=== PATIENT | female | born 1940 | race Caucasian/White ===

== ENCOUNTER → 2016-07-12 | Outpatient (CLI) | payer OTHER, BC ==
[~2016-07-12] VITALS: Ht 154.9 cm; Wt 49.2 kg
[~2016-07-12] MED LIST: AMBIEN 10 MG TA10 MG PO; ASPIR 8181 MG PO; ASPIRIN EC81 M1 PO; ASPIRIN325 PO; ATIVAN0.5 MG PO; ATROVENT15 ML NASAL; ATROVENT30 ML; BIOTIN1 M1 PO; BIOTIN2500 MCG PO; BISACODYL SUPP10 MG RECTAL; BONIVA150 MG PO; BROMIDE NASAL; CALCIUM + VITA1 EAC1 PO; CITRACAL + D M1 EACH PO; CITRUCEL500 MG PO; CLONAZEPAM 1 MG1 M1 PO; COLACE100 MG PO; CYCLOBENZAPRINE5 MG PO; CYMBALTA30 MG PO; CYMBALTA60 MG PO; DONEPEZIL HCL10 MG PO; EFFEXOR XR150 MG PO; FENTANYL PA25 MCG/HR TP; FENTANYL PATCH75 MCG TP; FISH OIL 1,0001 EAC5 PO; FISH OIL 1,001000 M2 PO; FISH OIL 500 M1 EAC1 PO; FLEXERIL PO; FOSAMAX 70 MG T70 MG PO; HYDROCHLOROTH12.5 MG PO; HYDROCODON-ACE1 EAC5 PO; IPRATROPIUM NASAL; LISINOPRIL5 MG PO; MAG-AL PLUS SUS30 ML PO; MOBIC7.5 MG PO; NEURONTIN 300300 M1 PO; PERCOCET 10-321 EAC1 PO; PERCOCET 10-321 EACH PO; REFRESH TEARS15 ML OPHTHALMIC; REMERON 30 MG T30 M1 PO; RESTASIS1 EACH; RESTASIS1 EACH OP; RESTASIS1 EACH OPHTHALMIC; SENNA8.6 MG PO; SENOKOT-S1 TA1 PO; TYLENOL325 MG PO; UNICOMPLEX M TA1 TA1 PO; VITAMIN D 5050000 I1 PO; XARELTO10 MG; [UNRECOGNIZED DRUG - CODE] OPHTHALMIC
--- NOTE | ~2016-07-12 | HPC ---
[facility] [place] [address] PAIN MANAGEMENT CONSULTATION Name: SHAKILA THOMAS [id number] Admission: 07/12/16 Attend Phys: Gianluca Wheat DO Discharge: Date of : 40 Report #: [id number] THIS REPORT FOR: //name// CC: Gianluca Vieira MD DATE OF SERVICE: 07/12/2016 DATE OF SERVICE: 07/12/2016 CHIEF COMPLAINT: Right sacroiliac joint pain. HISTORY OF PRESENT ILLNESS: As you know, the patient is a 76-year-old female, who returns today in followup visit reporting a pain score of around 4/10. States her pain is chronic in nature, constant in sensation, exacerbated with walking, rolling out of bed, standing and improves with medication, sitting in a recent intra-articular SI joint injection. Patient, as you are aware has severe scoliotic curvature and kyphosis of the thoracolumbar area. She has a spinal cord stimulator in place which apparently is not providing much in the way of benefit. There is concern that the battery itself has been depleted with lack of use. [employer] device customer sales representative attempted to adjust the device and restart the battery, but unfortunately this was unsuccessful. She is experiencing some discomfort over the pulse generator site as well. She returns today in followup visit to discuss the treatment options. ALLERGIES: No known drug allergies. CURRENT MEDICATIONS: ____, duloxetine, multivitamin, alendronate, aspirin, mirtazapine, docusate sodium, cyclobenzaprine, oxycodone, vitamin D. SOCIAL HISTORY: The patient denies tobacco, alcohol or IV or illicit drug use. She is a . She is accompanied by her granddaughter today. IMAGING: No new imaging available. PHYSICAL EXAMINATION: VITAL SIGNS: Blood pressure 109/71, pulse 68, respiratory rate 14, unlabored. The patient is 100% on room air. Height 5 feet 1 inch tall, weight 108.4 pounds, BMI calculated 20.5. GENERAL: Well-developed, well-nourished, well hydrated, kyphotic scoliotic a 76-year-old female, placing current pain score around 4/10 right upper buttock. HEENT: Normocephalic, atraumatic. Pupils equal, round, reactive to light. Extraocular muscles are intact. Sclerae nonicteric, without injection. Cranial nerves 2-12 grossly intact. MUSCULOSKELETAL: Palpatory tenderness over the right sacroiliac joint when [facility] [address] [place] [address] PAIN MANAGEMENT CONSULTATION Name: SHAKILA THOMAS Room #: REG [facility]#: [id number] Admission: 07/12/16 Attend Phys: Gianluca Wheat DO Discharge: Date of : 40 Report #: [id number] compared to the left. Deep palpation area causes intensification of pain. Seated straight leg raising negative. Supine straight leg raising positive only for SI joint pain over the lower back and posterolateral thigh. There is a palpatory tenderness over the pulse generator on the medial inferior aspect. Gait is antalgic. She utilizes a roller walker for ambulation. ASSESSMENT: 1. Chronic lumbar radiculopathy. 2. Displacement of lumbar intervertebral disk with radicular symptoms. 3. Lumbosacral spondylosis with radiculopathy. 4. Spinal stenosis of the lumbar spine. 5. Right sacroiliac joint dysfunction. 6. Lumbar degeneration. 7. Chronic intractable pain. PLAN: 1. The patient returns today in followup visit having noted excellent benefit with recent intra-articular SI joint injection provided at the last visit. She reported near 95% improvement in overall pain that lasted for some time. She returns today in followup visit to undergo this repeat injection in hopes of improving pain. She was advised the risks and benefits of the procedure, states she understood and wished to proceed. 2. The patient and I did discuss at length today ongoing pain issues. Also discussed the spinal cord stimulator itself. It appears that this device is no longer working. We would recommend the patient consider explantation of the device itself. She is having no improvement in symptoms with the therapy. It is causing her some discomfort over the pulse generator itself with recent loss of weight and the fact that it is not providing any benefit would indicate that a possible explantation would be something to consider. She will consider this as an option. 3. We did discuss the possibility of fusing the sacroiliac joint. There used to be a series of injections that could be done with a cool RF to address the lateral branches of the SI joint, but this has lost favor and is no longer being covered by insurers. The fusion of the SI joint is about the only remaining option for treatment. We will have the patient consider this as a potential treatment option, though I do not think she would be an excellent candidate for the procedure itself. 4. I will be sending the patient for AP and lateral of the right hip and SI joint today. We will review the findings once they are available and discussed with the patient the findings themselves. If surgical options are available, we will discuss this at followup visit. 5. The patient was provided a refill of nonsteroidal anti-inflammatory in the form of Mobic 7.5 mg 1 tab p.o. b.i.d. and I gave the patient #60 with 2 refills. 6. I have given the patient samples of Pennsaid for left thumb pain due to osteoarthritis. If she finds the Pennsaid affective, she contact her PCP about [facility] [address] [place] [address] PAIN MANAGEMENT CONSULTATION Name: SHAKILA THOMAS Room #: REG CL M.R.#: [id number] Admission: 07/12/16 Attend Phys: Gianluca Wheat DO Discharge: Date of : 40 Report #: [id number] of a refill. 6. We will review the results of the x-ray imaging that was ordered today and contact the patient tomorrow or the next day with the results and discuss the options for treatment. PROCEDURE NOTE DESCRIPTION OF PROCEDURE: Right sacroiliac joint injection under fluoroscopic guidance. After obtaining written consent, the patient was taken back to fluoroscopy suite, placed in prone position with a pillow under abdomen to decrease lumbar lordosis. Skin overlying the gluteal sacral area directly over the right sacroiliac joint was prepped and draped in aseptic fashion. A medial to lateral oblique projection allowed separation of the joint spaces to be visualized. Skin and subcutaneous tissue overlying the site of injection was anesthetized with 3 mL of 1% lidocaine. A #22 gauge 3-1/2 inch spinal needle with bent tip was directed towards the inferior aspect of the sacroiliac joint using a posterior approach. A "giving away" at the ____ was noted once the dorsal sacroiliac interosseous ligaments were engaged. After negative aspiration for heme, a total of 0.3 mL of Omnipaque was injected. A sacroiliac joint arthrogram was noted on AP and lateral fluoroscopy. After negative aspiration for heme, 3 mL of a solution containing 1 mL 40 mg per mL, 40 mg total triamcinolone and 2 mL of bupivacaine 0.5% injected slowly. Needle retracted residential flushed with 1 mL bupivacaine 0.5% and removed. Sterile bandage placed over injection site. The patient tolerated the procedure well, carefully escorted to the recovery in stable condition. No apparent complications. After meeting discharge criteria, the patient discharged home. By: [id number] Gianluca Wheat DO /nt
[2016-07-12 10:58] VITALS: BP 109/71
== END | disposition home or self-care (01) ==
LOC: PAIN 07:04
DX: M53.3 Sacrococcygeal disorders, not elsewhere classified (principal); M51.16 Intervertebral disc disorders with radiculopathy, lumbar region; G89.29 Other chronic pain; M48.06 Spinal stenosis, lumbar region; M47.27 Other spondylosis with radiculopathy, lumbosacral region; Z87.891 Personal history of nicotine dependence

== ENCOUNTER → 2016-08-02 | Outpatient (CLI) | payer OTHER, BC ==
[~2016-08-02] VITALS: Ht 152.4 cm; Wt 48.5 kg
--- NOTE | ~2016-08-02 | HPC ---
[facility] [place] [address] PAIN MANAGEMENT CONSULTATION Name: SHAKILA THOMAS [id number] Admission: 08/02/16 Attend Phys: Gianluca Wheat DO Discharge: Date of : 40 Report #: [id number] THIS REPORT FOR: //name// CC: Gianluca Vieira MD DATE OF SERVICE: 08/02/2016 DATE OF SERVICE: 08/02/2016 CHIEF COMPLAINT: Right sacroiliac joint pain. HISTORY OF PRESENT ILLNESS: As you know, the patient is a 76-year-old female, who underwent right SI joint injection under fluoroscopic guidance at last visit reporting good analgesic benefit. She indicates she is moving more freely. She is having less pain in the lower back and buttock area. She feels that the injection was of success. At this time, the patient is reporting pain score approximately 3/10. She is having some right anterior thigh pain for which she states her pain level of 5/10. This is a new finding. She returns to discuss this new issue and to discuss the possibility of repeating SI joint injections if her pain does return to a level of intolerability. ALLERGIES: No known drug allergies. CURRENT MEDICATIONS: Percocet 10/325 one tab every 4 hours p.r.n. for pain, meloxicam 7.5 mg twice a day, benazepril 15 mg per day, duloxetine 30 mg once a day, multivitamin 1 tab per day, alendronate 70 mg weekly, aspirin 81 mg per day, Remeron 30 mg p.o. at bedtime, cyclobenzaprine 5 mg at bedtime, vitamin D 50,000 units per week, clonazepam 1 mg p.r.n., calcium carbonate 1 tab per day. SOCIAL HISTORY: The patient denies tobacco, alcohol or IV or illicit drug use. She is a recent . She is accompanied by her granddaughter today. PHYSICAL EXAMINATION: VITAL SIGNS: Blood pressure 115/65, pulse 66, respiratory rate 16, unlabored. The patient is 100% on room air. Height 5 feet tall, weight 107 pounds, BMI calculated 20.9. GENERAL: Well-developed, well-nourished, well-hydrated, thin scoliotic kyphotic 76-year-old female appearing her stated age. Pain is rated at 3/10 right sacroiliac joint, 5/10 right anterior thigh. HEENT: Normocephalic, atraumatic. Pupils equal, round, reactive to light. Extraocular muscles are intact. Sclerae nonicteric, without injection. EXTREMITIES: Show no clubbing, no cyanosis, no edema. MUSCULOSKELETAL: The patient does have some palpatory tenderness over the right sacroiliac joint. Deep palpation causes intensification of pain. Seated [address] [address] PAIN MANAGEMENT CONSULTATION Name: SHAKILA THOMAS Room #: REG [facility].#: [id number] Admission: 08/02/16 Attend Phys: Gianluca Wheat DO Discharge: Date of : 40 Report #: [id number] straight leg raising negative. Supine straight leg raising is positive for SI joint dysfunction and some axial back pain, no radiation of symptoms in a typical radiation pattern for radiculopathy. Muscle bulk and tone is reduced on the right when compared to left. This is noted mainly over the quadriceps. This is likely due to a previous lumbar radiculopathy and subsequent atrophy and generalized weakness due to deconditioning. ASSESSMENT: 1. Right sacroiliac joint dysfunction. 2. Chronic lumbar radiculopathy. 3. Displacement of lumbar intervertebral disk with radiculopathy. 4. Lumbosacral spondylosis with radiculopathy. 5. Spinal stenosis of lumbar spine. 6. Lumbar degeneration. 7. Chronic intractable pain. PLAN: 1. The patient returns today in followup visit indicating pain score 3/10 over the right SI joint. A 50% reduction in symptoms from that last visit, but she is now experiencing right anterior thigh and medial thigh pain rated at 5/10. It does appear that the patient has some abductor muscle issues. This is probably most likely due to her unusual gait secondary to her severe scoliosis, kyphosis, her use of the roller walker and her SI joint dysfunction. The combination which is leading to changes in gait is significant enough and I believe she is causing strain on these muscle areas. There is noted atrophy in the right anterior thigh when compared to left over the quadriceps. This is likely due to the spinal stenosis that the patient suffers from and deconditioning atrophy. We discussed with the patient that increasing exercise would be quite helpful. This along with daily stretching would improve symptoms. The reliance on the roller walker has become quite problematic, as this is causing increasing axial back pain. We would recommend that the patient discussed the possibility of using a roller walker without the seat in the center and allow the patient to stand more erect within the middle of the walker itself instead of the roller walker with seat where she has to lean over to utilize. 2. We have reviewed the patient's recent x-ray imaging. There is some old compression fractures in the lumbar region. They do not appear to correlate to the patient's current pain distribution, so I am not concerned that these are highly active or new compressions, though I will keep a watchful eye on these, as she is a candidate for worsening compression fractures due to her body habitus, her positioning and trying to ambulate and severe scoliosis and kyphosis. If the patient has intensification of low back pain in the very near future, I will send her for lateral imaging to determine if these compression fractures may have progressed. 4. The patient will continue current medical therapy as previously prescribed. We made no changes in her therapy at this time. We did advise the patient if [facility] [address] [place] [address] PAIN MANAGEMENT CONSULTATION Name: SHAKILA THOMAS Room #: REG [facility].#: [id number] Admission: 08/02/16 Attend Phys: Gianluca Wheat DO Discharge: Date of : 40 Report #: [id number] her SI joint pain does return, we would be more than willing to see her back in followup visit to discuss the options for treatment including a repeat SI joint injection for which the patient received 50% improvement in symptoms. <ELECTRONICALLY SIGNED> By: Gianluca Wheat DO 08/03/16 1128 [id number] Gianluca Wheat DO /nt
[2016-08-02 11:08] VITALS: BP 115/65
== END | disposition home or self-care (01) ==
LOC: PAIN 07:20
DX: M53.3 Sacrococcygeal disorders, not elsewhere classified (principal); M54.16 Radiculopathy, lumbar region; M51.26 Other intervertebral disc displacement, lumbar region; M47.817 Spondylosis without myelopathy or radiculopathy, lumbosacral region; M51.36 Other intervertebral disc degeneration, lumbar region; G89.29 Other chronic pain

== ENCOUNTER 2016-09-23 09:57 | Inpatient (IN) | payer OTHER, BC ==
[~2016-09-23] VITALS: Ht 157.5 cm; Wt 54.0 kg
--- NOTE | ~2016-09-23 | 2DMMODE ---
[facility] [address] [place] [address] 2 D/M-MODE ECHOCARDIOGRAM Name: SHAKILA THOMAS Room #: 238-P ADM IN .R.#: [id number] Admission: 09/23/16 Attend Phys: Stephen Barksdale Discharge: Date of : 40 Date of Service: 09/26/16 1133 Report #: [id number] THIS REPORT FOR: //name// APPROVED REPORT Study performed: 09/26/2016 09:46:53 EXAM: Comprehensive 2D, Doppler, and color-flow Echocardiogram Patient Location: Bedside Room #: 238 Status: routine Other Information Study Quality: Adequate/No patient cooperation. ICU on BiPap Indications Shock. 2D Dimensions RVDd: 38.38 mm LVEF(%): 56.10 (>50%) IVSd: 10.13 (7-11mm) LVOT Diam: 19.70 (18-24mm) LVDd: 46.61 mm PWd: 8.90 (7-11mm) Ascending Ao: 37.74 (22-36mm) LVDs: 32.98 (25-40mm) Aortic Root: 31.96 mm Clinton's LVEF: 56.10 % Volumes Left Atrial Volume (Systole) Single Plane 4CH: 24.67 mL Single Plane 2CH: 18.90 mL LA ESV Index: 16.00 mL/m2 Aortic Valve AoV Peak Dexter.: 1.47 m/s AO Peak Gr.: 8.65 mmHg LVOT Max P.25 mmHg LVOT Max V: 1.25 m/s SANTIAGO Vmax: 2.59 cm2 Mitral Valve E/A Ratio: 0.8 MV Decel. Time: 196.91 ms MV E Max Dexter.: 0.78 m/s MV A Dexter.: 1.02 m/s MV PHT: 57.10 ms [facility] [place] [address] 2 D/M-MODE ECHOCARDIOGRAM Name: SHAKILA THOMAS Room #: 238-P [facility] [id number] Admission: 09/23/16 Attend Phys: Stephen Barksdale Discharge: Date of : 40 Date of Service: 09/26/16 1133 Report #: [id number] IVRT: 69.20 ms Pulmonary Valve PV Peak Dexter.: 0.99 m/s PV Peak Gr.: 3.93 mmHg Pulmonary Vein P Vein S: 0.74 m/s P Vein D: 0.40 m/s P Vein S/D Ratio: 1.85 Tricuspid Valve TR Peak Dexter.: 2.41 m/s RAP Estimate: 5.00 mmHg TR Peak Gr.: 23.15 mmHg PA Pressure: 28.00 mmHg Left Ventricle The left ventricle is normal size. There is normal left ventricular wall thickness. Left ventricular systolic function is normal. LVEF is 50-55%. Grade I - abnormal relaxation pattern. Right Ventricle The right ventricle is normal size. The right ventricular systolic function is normal. Atria The left atrium size is normal. The right atrium size is normal. Aortic Valve Aortic valve leaflets are mildly thickened. No aortic regurgitation is present. There is no aortic valvular stenosis. Mitral Valve The mitral valve is normal in structure. Trace mitral regurgitation. No evidence of mitral valve stenosis. Tricuspid Valve The tricuspid valve is normal in structure. There is mild tricuspid regurgitation. The right atrial pressure is estimated at 5 mmHg. Estiamted PAP is 28mmHg. Pulmonic Valve Pulmonic valve is not well visualized. Mild pulmonic regurgitation. Great Vessels [facility] [address] [place] [address] 2 D/M-MODE ECHOCARDIOGRAM Name: SHAKILA THOMAS Room #: 238-P [facility] IN ..#: [id number] Admission: 09/23/16 Attend Phys: Stephen Barksdale Discharge: Date of : 40 Date of Service: 09/26/16 1133 Report #: [id number] The aortic root is normal in size. The ascending aorta is mildly dilated at 3.8cm. IVC is normal in size and collapses >50% with inspiration. Pericardium There is no pericardial effusion. <Conclusion> The left ventricle is normal size. Left ventricular systolic function is normal. Grade I - abnormal relaxation pattern. The right ventricle is normal size. The left atrium size is normal. The right atrium size is normal. Aortic valve leaflets are mildly thickened. There is no aortic valvular stenosis. Trace mitral regurgitation. There is mild tricuspid regurgitation. The right atrial pressure is estimated at 5 mmHg. Estiamted PAP is 28mmHg. There is no pericardial effusion. <ELECTRONICALLY SIGNED> By: Alhaji Saha MD 09/26/16 1133 1133 1133 Alhaji Saha MD /INF
--- NOTE | ~2016-09-23 | HC ---
[facility] [address] CONSULTATION Name: SHAKILA THOMAS Room #: 238-P [facility] IN M.R.#: [id number] Admission: 09/23/16 Attend Phys: Stephen Arzate Discharge: Date of : 40 Report #: [id number] THIS REPORT FOR: //name// CC: Stephen Vieira REASON FOR CONSULTATION: I was asked to evaluate concerning septic shock. HISTORY OF PRESENT ILLNESS: The patient was a 76-year-old who was found down in her bathroom on 09/23/2016. History is unclear leading up to this. In the Emergency Room, she was delirious. She was hypothermic. Blood pressure was stable. Her white count was 9.3. No differential obtained, hemoglobin 12.8. Urinalysis was unremarkable. Her creatinine was 1.3. Chest x-ray was clear. She was transferred to the floor. Subsequently, she has developed hypotension, decreased urine output, respiratory compromise. She developed bilateral pulmonary infiltrates. Her oxygen went from 2 liters of 15 liter face mask. The patient is unable to give any further details of her history. She complains of hurting all over. She was in . Now in the Intensive Care Unit on a Levophed drip. She has peripheral IV in place, poor urine output, no stools. No vomiting. ALLERGIES: None known. MEDICATIONS: As noted on her JUN. She was started on Zosyn and Levaquin. Vancomycin was added today. Prior to admission, she was on calcium, clonazepam, Remeron, melatonin, Namzaric, Aricept, . Restasis, vitamin D, aspirin, Fosamax, multivitamin. PAST MEDICAL HISTORY: Degenerative arthritis, right total knee arthroplasty, chronic back pain with a spinal cord stimulator, hysterectomy, fibrocystic breast disease, depression, anxiety, dementia. FAMILY HISTORY: Noncontributory. SOCIAL HISTORY: She is a smoker of cigarettes. No significant alcohol use. REVIEW OF SYSTEMS: The patient was unable to give any details. She has an indwelling Vásquez catheter and a peripheral IV in place. PHYSICAL EXAMINATION: VITAL SIGNS: Initially hypothermic, now afebrile, heart rate 103, blood pressure 108/46 on Levophed drip. She did drop down in the 60s last night. She is on 15 liters, nonrebreather. Respiratory rate 20-30 range. HEENT: Unremarkable. She was a bit agitated when aroused, otherwise was lethargic. No adenopathy. Eyes unremarkable. Mouth was dry. NECK: Supple. LUNGS: Coarse breath sounds posteriorly. [address] [address] CONSULTATION Name: SHAKILA THOMAS Room #: 238-P [facility] IN M.R.#: [id number] Admission: 09/23/16 Attend Phys: Stephen Arzate Discharge: Date of : 40 Report #: [id number] HEART: Tachycardic and regular, did not appreciate any murmur. ABDOMEN: Mildly distended, was tender mostly on the right side with some fullness, could not appreciate any significant mass or hepatosplenomegaly. GENITOURINARY: External genitalia unremarkable with indwelling Vásquez catheter. EXTREMITIES: Right knee was significantly tender. This was her total knee arthroplasty joint. No surrounding erythema, minimal swelling. NEUROLOGIC: Otherwise nonfocal. LABORATORY STUDIES: Sodium 139, potassium 4.7, bicarbonate 20, creatinine initially 1.3, now 2.5. INR 1. Hemoglobin 10.9, white count 2.6. No differential, platelet count 175,000. Sedimentation rate was 15, cortisol 60. Urinalysis unremarkable. ABG on 15 liters pO2 was 124, pCO2 of 44, pH 7.2 with a bicarbonate of 17. Blood cultures are pending. Legionella antigen was negative. Chest x-ray now with bilateral pulmonary infiltrates. CT scan of the head negative. X-ray of the abdomen. stool in the colon consistent with constipation. IMPRESSION: A 76-year-old who was found down at home, now with septic shock, metabolic acidosis, toxic metabolic encephalopathy with delirium, acute renal failure, neutropenia, bilateral pulmonary infiltrates, abdominal pain. I am concerned about intraabdominal source of infection. Does not have evidence of urinary tract infection. Now has developed pneumonia whether this is an aspiration pneumonia, acute respiratory distress syndrome or congestive heart failure is yet to be further delineated. PLAN: Recommend full support noting that the patient is a DNR. She will have imaging studies of her chest and abdomen, check differential, liver function tests, CVP, BMP, echocardiogram and full ICU resuscitation with sepsis protocol. We will continue her antibiotic coverage, adjusted for her acute renal failure. <ELECTRONICALLY SIGNED> By: Thiago Garcia MD 09/26/16 0807 [id number] 0522 Thiago Garcia MD /nt
--- NOTE | ~2016-09-23 | HC ---
[facility] [place] [address] CONSULTATION Name: SHAKILA THOMAS Mau Room #: 238-P [facility] IN M.R.#: [id number] Admission: 09/23/16 Attend Phys: Stephen Arzate Discharge: Date of : 40 Report #: [id number] THIS REPORT FOR: //name// CC: Stephen Vieira DATE OF SERVICE: 09/25/2016 REFERRING PROVIDER: Dr. Arzate. REASON FOR CONSULTATION: Hypoxemic respiratory failure, sepsis. CHIEF COMPLAINT: Altered mental status. HISTORY OF PRESENT ILLNESS: Our group was asked to see the patient in consultation while hospitalized at [facility], called about one half hour ago to evaluate. The patient ____ 2 days ago, presented to the Emergency Department in the afternoon of 09/23/2016 being found lying face down by her speech pathologist in her independent living and subsequently was brought to our Emergency Department, was noted to be hypothermic. The exact etiology of her altered mental status is unclear. Head imaging as well as carotid Dopplers apparently negative, initial x-ray of the chest was relatively clear at that time, there was some concern for aspiration pneumonia and some ongoing hypotension. The patient has had worsening hypotension and renal insufficiency overnight. The patient brought down emergently to the ICU this morning for ongoing hypotension, altered mental status and refractory hypoxemia, currently on a nonrebreather mask. Chest x-ray reveals diffuse nodular-appearing alveolar infiltrates that are acute from when compared to admission film. The patient is on norepinephrine drip to maintain reasonable blood pressure. The patient is awake, but mumbling, does follow some commands, some loose cough. The patient is not febrile or hypothermic at this time, remains tachycardic, in a sinus rhythm, additional workup is pending. ALLERGIES: No known drug allergies. PAST MEDICAL HISTORY: 1. History of dementia, exact severity unclear. 2. History of osteoarthritis. 3. History of chronic back pain with a pain stimulator in place. 4. Depression and anxiety. OUTPATIENT MEDICATIONS: Include vitamin D, Klonopin, Remeron, melatonin, Aricept, trazodone, cyclosporine, aspirin, Fosamax and multivitamin. SOCIAL HISTORY: The patient apparently is an ex-smoker. No significant alcohol [address] [address] CONSULTATION Name: SHAKILA THOMAS Room #: 238-P [facility] IN M.R.#: [id number] Admission: 09/23/16 Attend Phys: Stephen Arzate Discharge: Date of : 40 Report #: [id number]. FAMILY HISTORY: Unobtainable due to her current status. REVIEW OF SYSTEMS: Otherwise, unobtainable due to her current status, may have some mild abdominal pain when queried and loose cough that is new. PHYSICAL EXAMINATION: VITAL SIGNS: The patient is currently afebrile, pulse 100 and regular, respiratory rate in the 20s, blood pressure 93/43. GENERAL: This is an elderly woman, somewhat tachypneic and confused. ENT: Clear oropharynx. NECK: Supple. No lymphadenopathy. Jugular venous pressure not elevated. LUNGS: Diffuse coarse inspiratory and expiratory rhonchi noted throughout. CARDIOVASCULAR: Tachycardic, but regular. No murmurs noted. ABDOMEN: Soft, nontender to mild right upper quadrant tenderness, no masses noted. EXTREMITIES: Diminished pulses, some cyanosis in the distal extremities in the lower extremities around the feet with only trace edema. LABORATORY DATA: Chemistry profile revealed sodium 139, potassium 4.7, chloride 104, bicarbonate 20, BUN 51, creatinine 2.5, glucose was 50, phosphorus 6.9, calcium 7.7, albumin 2.8. White blood cell count was 2.6, hemoglobin 11, hematocrit 33, platelet count 175. Arterial blood gas done on 15 liters on nonrebreather revealed pH 7.21, pCO2 of 45, pO2 125, bicarbonate 18, lactate 3.4. IMPRESSION: 1. Severe sepsis or sepsis syndrome based on hypotension, tachycardia, hypoxemia, tachypnea and originally hypothermic as well as what appears to be a progressive leukopenia, ongoing renal failure. 2. Multiorgan dysfunction syndrome with renal failure, respiratory failure and hemodynamic insufficiency. 3. Pulmonary infiltrates consistent with pneumonia, possibly aspiration. 4. Severe lactic acidosis with mixed metabolic and respiratory acidosis. 5. Abdominal discomfort of unclear etiology. Consider further imaging with CT abdomen and pelvis in addition to checking abdominal enzymes if not performed. 6. Acute renal failure. 7. Underlying dementia. 8. Resuscitative status noted to be do not resuscitate, we will ____ discuss further with DPO and family. RECOMMENDATIONS: 1. Continue resuscitative efforts with IV fluids. 2. Nephrology consultation regarding acidosis and acute renal failure. 3. Antibiotics per infectious disease service. [address] [address] CONSULTATION Name: SHAKILA THOMAS Room #: 238-P [facility] IN M.R.#: [id number] Admission: 09/23/16 Attend Phys: Stephen French Carito Discharge: Date of : 40 Report #: [id number] 4. Await broad-spectrum antimicrobials. 5. Consider CT abdomen and pelvis to further evaluate. 6. Central venous catheter insertion with monitoring for sepsis protocol. 7. Sepsis per protocol using sepsis bundle. 8. Additional recommendations to follow. Discussed with nursing and Dr. Garcia of Infectious Disease Service. Total critical care time 40 minutes not including any procedures to this point. <ELECTRONICALLY SIGNED> By: Duncan Edwards MD 09/29/16 1133 1001 [id number] Duncan Edwards MD /nt
--- NOTE | ~2016-09-23 | EKG ---
[place] [address] [facility] [place] [address] ELECTROCARDIOGRAM REPORT Name: SHAKILA THOMAS Room #: 420-P ADM IN M.R.#: [id number] Admission: 09/23/16 Attend Phys: Stephen Arzate Discharge: Date of : 40 Report #: [id number] THIS REPORT FOR: //name// [facility] ED Test Date: 2016-09-23 Test Time: 10:07:46 Pat Name: SHAKILA THOMAS Department: Room: 420 Gender: F [employer]: AB : 1940 Requested By: Sundar Chamorro Order Number: [id number] MD: Hal Horton Measurements Intervals [place] Rate: 53 P: 49 NE: 160 QRS: -8 QRSD: 108 T: 86 QT: 470 QTc: 442 Interpretive Statements Sinus rhythm Atrial premature complexes Low voltage, precordial leads Poor R-wave progression Cannot reliably assess ST segments due to baseline artifact Compared to ECG 08/18/2013 17:26:[address] segment changes Electronically Signed On 09-24-2016 16:36:46 CDT by Hal Horton [email or web address] <ELECTRONICALLY SIGNED> By: Hal Horton MD, [facility] 09/24/16 1636 1007 1007 Hal Horton MD, [facility] /EPI
--- NOTE | ~2016-09-23 | HC ---
[facility] [place] [address] CONSULTATION Name: WILLIAMSHAKILA Room #: 238-P [facility] IN ..#: [id number] Admission: 09/23/16 Attend Phys: Stephen Arzate Discharge: Date of : 40 Report #: [id number] THIS REPORT FOR: //name// CC: Stephen Vieira DATE OF SERVICE: 09/25/2016 NEPHROLOGY CONSULTATION REASON FOR CONSULTATION: Rising creatinine level. HISTORY OF PRESENT ILLNESS: This is a 76-year-old female who came in through the emergency room 2 days ago. I have reviewed all those records. I have also obtained additional history from the patient's niece who was at the bedside. The patient was apparently in her normal state of health until at least 48 hours ago. She was found down in her apartment. She was brought in through the emergency room. On original admission, blood pressure was fairly good and normal. She was not particularly tachycardic. She was hypothermic with a temperature of 92.3. She was rewarmed and given some IV fluids. Later that day, she began getting hypotensive and dropped her pressures throughout most of yesterday. She was eventually moved to the intensive care unit early this morning. Through that time, she had many pressures registering in the 70-80 systolic range. She got more tachycardic. She has not had fever. She has been hypoxemic and has been put on oxygen via face mask. During this time, she has had a creatinine level that has gone from 1.3 on admission up to 2.6 today. She has had a normal potassium level. Anion gap is only at 12. She has developed some acidosis and on blood gas today shows a pH of 7.21, pCO2 of 45, pO2 of 124 and a lactate of 3.42. A repeat couple hours later showed 7.26 on the pH, pCO2 a better at 38.1. Lactate was down to 2.86. She has been given a substantial amount of IV fluids. She has been started on some Levophed and is currently running at 7 mcg per minute. Cultures have been drawn. She has been started on broad spectrum antibiotics, including vancomycin and Zosyn. IV fluids have been changed to normal saline with some sodium bicarbonate 50 mEq per liter added. From a renal standpoint, her admitting creatinine level was 1.3. Yesterday morning, it was up to 1.9 and then this morning 2.5. The patient's niece tells me she had a recent creatinine of 0.9 and generally runs in the 1 range. She does tend to run a somewhat low blood pressure much of the time. I would note she has a Vásquez catheter in place and urine has a dark brown appearance. CPK on admission was 230. Her admission U/A did show a urine specific gravity of greater than 1.030. There is no mention of dipstick positive blood. CPK on admission was 230. Additionally, the patient's niece tells me that she potentially had taken a very large dose of hydrocodone and acetaminophen 10/325 mg, potentially up to 50 of those tablets at some time in the day before she was found down. No liver tests were drawn on admission. No acetaminophen level was [address] [address] CONSULTATION Name: SHAKILA THOMAS Room #: 238-P [facility] IN M.R.#: [id number] Admission: 09/23/16 Attend Phys: Stephen Arzate Discharge: Date of : 40 Report #: [id number] drawn. She has an AST today of 506 and an ALT of 426; again, this was 48 hours after admission. Acetaminophen level has been drawn, but is pending. PAST MEDICAL HISTORY: The patient has some chronic dementia and is on chronic dementia meds. She is in an independent living and her niece takes care of her, puts out her meds and checks in on her. Again, the niece is the DPOA. She has chronic pain mostly in her right leg and is on chronic pain management for that. She has had a previous hysterectomy. She has also has spinal cord stimulator placed. MEDICATIONS: On admission, meloxicam 7.5 mg b.i.d., the hydrocodone with acetaminophen, calcium and vitamin D, clonazepam, Remeron, Namzaric, Aricept, aspirin and Fosamax. ALLERGIES: No known medical allergies. FAMILY HISTORY: Noncontributory. SOCIAL HISTORY: The patient is in independent living, as noted above. Her niece is her durable power of family law attorney. I would also note that her niece is an polisher eyeglass frames at [employer] and is very familiar obviously with intensive care medication. REVIEW OF SYSTEMS: Unavailable from the patient at this time. PHYSICAL EXAMINATION: GENERAL: Acutely ill-appearing female seen in the intensive care unit. VITAL SIGNS: On Levophed at 7 mcg, blood pressure is 124/50, heart rate 103, temperature 98.6 and oxygen saturation 94%. HEENT: She is very pale in appearance. She has a face mask on for breathing. Pupils are 2 mm. Sclerae are nonicteric. NECK: Supple. She has JVD bilaterally. No adenopathy. CHEST: Shows very shallow respirations with coarse breath sounds. HEART: Has a regular rate and rhythm. ABDOMEN: Fairly quiet, mildly distended. She is sore to palpation with some tenderness. I cannot palpate organomegaly or masses. Liver edge is not palpable. EXTREMITIES: Show diffuse edema, 2+ bilateral upper extremities, trace to 1+ bilateral lower extremities. Chronically tender in the right leg. Diminished peripheral pulses. LABORATORY DATA: Lab from today, sodium 138, potassium 4.3, chloride 105, bicarbonate 21, BUN 56, creatinine 2.6 and glucose 90. AST of 506, total bilirubin 1.5, calcium 7.3, ALT 526, total protein 5.3 and albumin 2.6. Acetaminophen level just came back since the dictation started and is at 27 and again, that is 48 hours post presentation. White count 4.7, hemoglobin 11.3, [facility] [address] [place] [address] CONSULTATION Name: SHAKILA THOMAS Room #: [facility]- ADM IN .R.#: [id number] Admission: 09/23/16 Attend Phys: Stephen Arzate Discharge: Date of : 40 Report #: [id number] hematocrit 33.7 and platelets 190,000. No differential. Blood gases as noted above. Chest x-ray shows diffuse infiltrates bilaterally. ASSESSMENT: 1. Sepsis. She is hypotensive. She has had leukocytosis. She has increasing white count. She has been given a lot of fluids and in fact is starting to get volume overloaded. Her blood pressures come up some with the Levophed. She has been started on broad spectrum antibiotics. 2. Acute kidney injury, again related to hypotension and sepsis. She has a fair amount of urine in the Vásquez. Volume status is that of being volume overloaded. We will see if we can increase urine output with some additional Lasix or cut back on her fluids. In addition, her bicarbonate infusion is hypertonic with 204 mEq per liter of sodium. So, we will cut that back and go to half normal with some bicarbonate. We will also cut the rate way back. At this point, potassium level is okay. 3. Respiratory failure with hypoxemia. 4. Acute liver injury, likely related to acetaminophen. If she took a maximum of 50 tablets of 325 mg each, she got potentially 15 grams at that time. Her current level of 27 is 48 hours out, which indicates she probably did have significant acetaminophen toxicity. We are past the point of doing anything about it at this point. Transaminases are elevated. Bilirubin is up a little bit. We will see how she responds. 5. We will recheck a CPK to see if there is further evidence of rhabdomyolysis. 6. Chronic memory deficit/dementia. PLAN: I had a long conversation in the ICU with patient's durable power of family law attorney, who is also an ICU physician. It has been the patient's request not to pursue heroic measures. The decision has already been made not to do an intubation. She is on some pressors. It is also the request that we not pursue dialysis. With that in mind, we will adjust her IV fluids, continue to use pressors to support her blood pressure. She has gotten broad spectrum antibiotics. I will give her q. 8 hour IV Lasix to try to stimulate urine output and get rid of some of her additional volume. In addition, she will get frequent labs and will follow up on those. We will recheck a CPK. We will recheck urinalysis as well as fractional excretion of sodium. We will follow along closely with response to this very difficult saturation. <ELECTRONICALLY SIGNED> By: Quoc Montano MD 09/27/16 0802 [id number] 1109 Ej Neri MD /nt
[2016-09-23 10:00] VITALS: BP 138/71
[2016-09-23 10:22] LABS: HEMATOCRIT 38.4 % (37.0-47.0); HEMOGLOBIN 12.8 gm/dL (12.0-15.0); MCH 31.7 pg (26.0-34.0); MCHC 33.4 g/dL (28.0-37.0); MCV 94.8 fL (80.0-100.0); RBC 4.06 mil/uL (4.20-5.00); RDW 15.1 % (10.5-14.5); WBC 9.3 thou/uL (4.0-11.0)
[2016-09-23 10:34] LABS: ANION GAP 11 mmol/L (7-16); BUN 28 mg/dL (7-18); CALCIUM 9.2 mg/dL (8.5-10.1); CHLORIDE 100 mmol/L (98-107); CO2 27 mmol/L (21-32); CREATININE 1.3 mg/dL (0.6-1.0); GLUCOSE 129 mg/dL (74-106); POTASSIUM 3.7 mmol/L (3.5-5.1); SODIUM 138 mmol/L (136-145)
[2016-09-23 10:36] LABS: APTT 29.4 Seconds (24.5-32.8); PROTIME 10.3 Seconds (9.3-11.4)
[2016-09-23 10:41] LABS: TROPONIN-I < 0.04 ng/mL (<0.04-0.07)
[2016-09-23] MEDS ORDERED: MELATONIN1 MG PO (10:47)
[2016-09-23] MEDS ORDERED: NAMZARIC 28 MG1 EACH PO (10:48)
[2016-09-23 11:16] LABS: URINE BILIRUBIN NEGATIVE (Negative); URINE BLOOD NEGATIVE (Negative); URINE COLOR YELLOW; URINE GLUCOSE-RANDOM* NEGATIVE (Negative); URINE KETONES NEGATIVE (Negative); URINE LEUKOCYTES-REFLEX NEGATIVE (Negative); URINE PROTEIN (DIPSTICK) TRACE (Negative); URINE SPECIFIC GRAVITY >= 1.030 (1.003-1.035); URINE UROBILINOGEN 0.2 E.U./dl (0.2-1.0)
[2016-09-23] MEDS ORDERED: ARICEPT10 MG PO (11:39)
[2016-09-23] MEDS ORDERED: RESTASIS1 EACH OPHTHALMIC (11:40)
[2016-09-23] MEDS ORDERED: TRAZODONE HCL50 MG PO (11:40)
[2016-09-23 15:20] VITALS: BP 86/39
[2016-09-23 16:12] VITALS: BP 89/51
[2016-09-23 19:46] VITALS: BP 81/48
[2016-09-23] MEDS ORDERED: CYMBALTA20 MG PO (20:22)
[2016-09-23 23:50] VITALS: BP 70/41
[2016-09-24 03:50] VITALS: BP 74/39
[2016-09-24 04:50] LABS: ALBUMIN 2.8 g/dL (3.4-5.0); CALCIUM 8.6 mg/dL (8.5-10.1); CREATININE 1.9 mg/dL (0.6-1.0); PHOSPHORUS 6.9 mg/dL (2.5-4.9); POTASSIUM 4.2 mmol/L (3.5-5.1)
[2016-09-24 07:44] VITALS: BP 71/42
[2016-09-24 15:20] VITALS: BP 88/64
[2016-09-24 20:00] VITALS: BP 150/64
[2016-09-25] VITALS (73 sets, daily range): BP systolic 68–127; BP diastolic 30–97
[2016-09-25 03:50] LABS: HEMATOCRIT 33.1 % (37.0-47.0); HEMOGLOBIN 10.9 gm/dL (12.0-15.0); MCH 31.8 pg (26.0-34.0); MCV 96.3 fL (80.0-100.0); RBC 3.44 mil/uL (4.20-5.00); RDW 15.3 % (10.5-14.5); WBC 2.6 thou/uL (4.0-11.0)
[2016-09-25 04:00] LABS: CALCIUM 7.7 mg/dL (8.5-10.1); CREATININE 2.5 mg/dL (0.6-1.0); POTASSIUM 4.7 mmol/L (3.5-5.1)
[2016-09-25 05:57] LABS: ABG SAMPLE TYPE ARTERIAL; BE(vivo) -9.8 mmol/L (-2 to +3); HCO3 17.6 mmol/L (22.0-26.0); LACTATE 3.42 mmol/L (0.5-2.0); O2(CT) 16.1 mL/dL (15.0-23.0); O2Hb 97.5 % (92.0-98.0); PCO2 44.9 mmHg (35.0-45.0); PO2 124.5 mmHg (80.0-100.0); STICK SITE R.RADIAL; pH 7.212 (7.360-7.450); sO2 97.8 % (92.0-98.0)
[2016-09-25 11:22] LABS: HEMATOCRIT 33.7 % (37.0-47.0); HEMOGLOBIN 11.3 gm/dL (12.0-15.0); MCH 31.9 pg (26.0-34.0); MCHC 33.5 g/dL (28.0-37.0); MCV 95.4 fL (80.0-100.0); PLATELET COUNT 190 thou/uL (150-400); RBC 3.53 mil/uL (4.20-5.00); RDW 15.1 % (10.5-14.5); WBC 4.7 thou/uL (4.0-11.0)
[2016-09-25 11:23] LABS: MANUAL DIFF YES
[2016-09-25 11:26] LABS: ABG SAMPLE TYPE ARTERIAL; BE(vivo) -9.7 mmol/L (-2 to +3); HCO3 16.7 mmol/L (22.0-26.0); LACTATE 2.86 mmol/L (0.5-2.0); O2(CT) 14.3 mL/dL (15.0-23.0); O2Hb 86.8 % (92.0-98.0); PCO2 38.1 mmHg (35.0-45.0); PO2 56.1 mmHg (80.0-100.0); tCO2 17.8 mmol/L (24.0-30.0)
[2016-09-25 11:27] LABS: STICK SITE R.RADIAL; pH 7.259 (7.360-7.450)
[2016-09-25 11:30] LABS: CALCIUM 7.3 mg/dL (8.5-10.1); CREATININE 2.6 mg/dL (0.6-1.0); POTASSIUM 4.3 mmol/L (3.5-5.1)
[2016-09-25 11:34] LABS: ALBUMIN 2.6 g/dL (3.4-5.0); TOTAL BILIRUBIN 1.5 mg/dL (<0.1-1.0); TOTAL PROTEIN 5.3 g/dL (6.4-8.2)
[2016-09-25 11:35] LABS: APTT 40.3 Seconds (24.5-32.8); FIBRINOGEN 442.7 mg/dL (210-360); PROTIME 22.4 Seconds (9.3-11.4)
[2016-09-25 11:36] LABS: INR 2.2
[2016-09-25 12:38] LABS: ABG SAMPLE TYPE VENOUS; BE(vivo) -6.9 mmol/L (-2 to +3); HCO3 20.3 mmol/L (22.0-26.0); LACTATE 2.92 mmol/L (0.5-2.0); O2(CT) 11.3 mL/dL (15.0-23.0); PO2 VENOUS 38.3 mmHg (35.0-45.0); sO2 VENOUS 63.3 % (65.0-85.0); tCO2 21.8 mmol/L (24.0-30.0)
[2016-09-25 12:39] LABS: STICK SITE LINE
[2016-09-25 14:25] LABS: ABG SAMPLE TYPE VENOUS; BE(vivo) -6.9 mmol/L (-2 to +3); HCO3 20.3 mmol/L (22.0-26.0); LACTATE 2.63 mmol/L (0.5-2.0); O2(CT) 12.9 mL/dL (15.0-23.0); O2Hb VENOUS 79.5 (65.0-85.0); PCO2 VENOUS 47.7 mmHg (41.0-51.0); sO2 VENOUS 75.8 % (65.0-85.0); tCO2 21.8 mmol/L (24.0-30.0)
[2016-09-25 14:26] LABS: STICK SITE LINE
[2016-09-25 15:17] LABS: ABSOLUTE NEUTROPHILS 3.3 thou/uL (1.4-8.2); METAMYELOCYTES 7 %; MYELOCYTES 1 %; TOTAL CELL COUNT 100; TOXIC GRANULATION 2+
[2016-09-25 15:26] LABS: ALBUMIN 2.2 g/dL (3.4-5.0); CALCIUM 6.5 mg/dL (8.5-10.1); CREATININE 2.1 mg/dL (0.6-1.0); DIRECT BILIRUBIN 0.9 mg/dL (<0.1-0.3); POTASSIUM 3.9 mmol/L (3.5-5.1); TOTAL BILIRUBIN 1.4 mg/dL (<0.1-1.0); TOTAL PROTEIN 4.7 g/dL (6.4-8.2)
[2016-09-25 15:32] LABS: FIBRINOGEN 263.7 mg/dL (210-360); INR 2.6; PROTIME 27.2 Seconds (9.3-11.4)
[2016-09-25 15:38] LABS: APTT 59.2 Seconds (24.5-32.8)
[2016-09-25 15:45] LABS: ABG SAMPLE TYPE VENOUS; BE(vivo) -9.2 mmol/L (-2 to +3); HCO3 18.1 mmol/L (22.0-26.0); LACTATE 2.33 mmol/L (0.5-2.0); O2(CT) 13.3 mL/dL (15.0-23.0); O2Hb VENOUS 83.5 (65.0-85.0); PCO2 VENOUS 45.1 mmHg (41.0-51.0); STICK SITE PICC; sO2 VENOUS 81.6 % (65.0-85.0); tCO2 19.5 mmol/L (24.0-30.0)
[2016-09-25 15:46] LABS: ABG COMMENT AND 8L O2 VIA AEROSO; Pressure Support 8 cm H20
[2016-09-25 16:29] LABS: ABG SAMPLE TYPE VENOUS; HCO3 20.5 mmol/L (22.0-26.0); O2(CT) 13.5 mL/dL (15.0-23.0); O2Hb VENOUS 84.2 (65.0-85.0); PCO2 VENOUS 49.4 mmHg (41.0-51.0); PO2 VENOUS 53.1 mmHg (35.0-45.0); STICK SITE LINE; sO2 VENOUS 81.2 % (65.0-85.0)
[2016-09-25 16:45] LABS: URINE BLOOD 3+ (Negative); URINE COLOR YELLOW; URINE GLUCOSE-RANDOM* NEGATIVE (Negative); URINE KETONES NEGATIVE (Negative); URINE NITRITE NEGATIVE (Negative); URINE PROTEIN (DIPSTICK) TRACE (Negative); URINE SPECIFIC GRAVITY 1.015 (1.003-1.035); URINE UROBILINOGEN 0.2 E.U./dl (0.2-1.0)
[2016-09-25 16:49] LABS: ICTOTEST (BILI CONFIRMATORY) Negative (Negative); URINE BILIRUBIN NEGATIVE (Negative)
[2016-09-25 16:54] LABS: CASTS None Seen /LPF (None Seen); SQUAMOUS 0-3 Few /LPF (0-3); URINE WBC None Seen /HPF (0-5)
[2016-09-25 16:55] LABS: BACTERIA None Seen /HPF (None Seen); CRYSTALS None Seen /LPF (None Seen); URINE RBC >20 Many /HPF (0-2)
[2016-09-25 17:15] LABS: ABG SAMPLE TYPE VENOUS; BE(vivo) -7.6 mmol/L (-2 to +3); HCO3 19.4 mmol/L (22.0-26.0); LACTATE 2.83 mmol/L (0.5-2.0); O2(CT) 11.7 mL/dL (15.0-23.0); O2Hb VENOUS 77.5 (65.0-85.0); PO2 VENOUS 44.7 mmHg (35.0-45.0); sO2 VENOUS 72.9 % (65.0-85.0); tCO2 20.9 mmol/L (24.0-30.0)
[2016-09-25 17:16] LABS: STICK SITE LINE
[2016-09-25 18:22] LABS: APTT 39.3 Seconds (24.5-32.8); INR 2.1; PROTIME 21.6 Seconds (9.3-11.4)
[2016-09-25 18:48] LABS: CALCIUM 6.7 mg/dL (8.5-10.1); CREATININE 2.2 mg/dL (0.6-1.0); POTASSIUM 3.9 mmol/L (3.5-5.1)
[2016-09-25 18:59] LABS: ABG SAMPLE TYPE VENOUS; HCO3 18.6 mmol/L (22.0-26.0); LACTATE 2.84 mmol/L (0.5-2.0); O2(CT) 12.1 mL/dL (15.0-23.0); O2Hb VENOUS 80.2 (65.0-85.0); PCO2 VENOUS 42.9 mmHg (41.0-51.0); PO2 VENOUS 47.2 mmHg (35.0-45.0); STICK SITE LINE; sO2 VENOUS 76.7 % (65.0-85.0)
[2016-09-26] VITALS (75 sets, daily range): BP systolic 82–169; BP diastolic 48–121
[2016-09-26 05:14] LABS: ABG SAMPLE TYPE ARTERIAL; BE(vivo) -4.4 mmol/L (-2 to +3); HCO3 20.3 mmol/L (22.0-26.0); O2(CT) 16.4 mL/dL (15.0-23.0); O2Hb 97.4 % (92.0-98.0); PCO2 36.3 mmHg (35.0-45.0); PO2 135.7 mmHg (80.0-100.0); Pressure Support 16 cm H20; STICK SITE L.BRACHIAL; pH 7.366 (7.360-7.450); sO2 98.6 % (92.0-98.0); tCO2 21.4 mmol/L (24.0-30.0)
[2016-09-26 05:16] LABS: HEMATOCRIT 30.4 % (37.0-47.0); HEMOGLOBIN 10.3 gm/dL (12.0-15.0); MCH 31.7 pg (26.0-34.0); MCV 93.2 fL (80.0-100.0); PLATELET COUNT 170 thou/uL (150-400); RBC 3.26 mil/uL (4.20-5.00); RDW 15.4 % (10.5-14.5); WBC 9.5 thou/uL (4.0-11.0)
[2016-09-26 05:27] LABS: MANUAL DIFF YES
[2016-09-26 05:32] LABS: INR 1.8; PROTIME 18.7 Seconds (9.3-11.4)
[2016-09-26 05:34] LABS: DIRECT BILIRUBIN 0.7 mg/dL (<0.1-0.3)
[2016-09-26 05:40] LABS: ALBUMIN 2.1 g/dL (3.4-5.0); CALCIUM 6.5 mg/dL (8.5-10.1); CREATININE 1.9 mg/dL (0.6-1.0); MAGNESIUM 1.4 mg/dL (1.8-2.4); POTASSIUM 3.1 mmol/L (3.5-5.1); TOTAL BILIRUBIN 1.3 mg/dL (<0.1-1.0); TOTAL PROTEIN 4.9 g/dL (6.4-8.2)
[2016-09-26 08:58] LABS: ABSOLUTE NEUTROPHILS 8.6 thou/uL (1.4-8.2); PLATELET ESTIMATE NORMAL; TOTAL CELL COUNT 100
[2016-09-26 08:59] LABS: TOXIC GRANULATION 1+
[2016-09-26 11:11] LABS: URINE CREATININE-RANDOM* 25.2 mg/dL (Not Estab.)
[2016-09-26 17:36] LABS: CALCIUM 6.7 mg/dL (8.5-10.1); CREATININE 1.5 mg/dL (0.6-1.0)
[2016-09-26 17:39] LABS: POTASSIUM 2.8 mmol/L (3.5-5.1)
[2016-09-27] VITALS (10 sets, daily range): BP systolic 85–113; BP diastolic 50–75
[2016-09-27 05:02] LABS: HEMOGLOBIN 10.1 gm/dL (12.0-15.0); MANUAL DIFF YES; MCV 91.4 fL (80.0-100.0); PLATELET COUNT 127 thou/uL (150-400); RBC 3.17 mil/uL (4.20-5.00)
[2016-09-27 05:13] LABS: ALBUMIN 2.1 g/dL (3.4-5.0); CREATININE 1.4 mg/dL (0.6-1.0); PHOSPHORUS 1.9 mg/dL (2.5-4.9)
[2016-09-27 05:18] LABS: POTASSIUM 2.7 mmol/L (3.5-5.1)
[2016-09-27 05:57] LABS: ABSOLUTE NEUTROPHILS 9.8 thou/uL (1.4-8.2); ANISOCYTOSIS SLIGHT; ATYPICAL LYMPHS 1 %; MYELOCYTES 1 %; NUCLEATED RBCS 1 /100WBC; TOTAL CELL COUNT 100
[2016-09-27 09:34] LABS: CALCIUM 6.9 mg/dL (8.5-10.1); CREATININE 1.3 mg/dL (0.6-1.0)
[2016-09-27 09:42] LABS: POTASSIUM 2.9 mmol/L (3.5-5.1)
[2016-09-27 16:43] LABS: CALCIUM 6.8 mg/dL (8.5-10.1); CREATININE 1.2 mg/dL (0.6-1.0); POTASSIUM 3.4 mmol/L (3.5-5.1)
[2016-09-28] VITALS (24 sets, daily range): BP systolic 99–142; BP diastolic 52–88
[2016-09-28 04:41] LABS: ABG SAMPLE TYPE ARTERIAL; BE(vivo) 6.3 mmol/L (-2 to +3); HCO3 31.3 mmol/L (22.0-26.0); LACTATE 2.44 mmol/L (0.5-2.0); O2(CT) 14.7 mL/dL (15.0-23.0); O2Hb 94.4 % (92.0-98.0); PCO2 46.8 mmHg (35.0-45.0); PO2 78.1 mmHg (80.0-100.0); pH 7.443 (7.360-7.450); sO2 95.9 % (92.0-98.0); tCO2 32.7 mmol/L (24.0-30.0)
[2016-09-28 05:24] LABS: HEMATOCRIT 28.8 % (37.0-47.0); HEMOGLOBIN 9.8 gm/dL (12.0-15.0); MCHC 34.2 g/dL (28.0-37.0); MCV 93.5 fL (80.0-100.0); RBC 3.08 mil/uL (4.20-5.00); RDW 15.5 % (10.5-14.5)
[2016-09-28 05:38] LABS: ABG COMMENT BIPAP 16/8; Pressure Support 8 cm H20; STICK SITE L.RADIAL
[2016-09-28 05:39] LABS: CREATININE 1.1 mg/dL (0.6-1.0); PHOSPHORUS 1.6 mg/dL (2.5-4.9); POTASSIUM 3.8 mmol/L (3.5-5.1); TOTAL BILIRUBIN 0.7 mg/dL (<0.1-1.0)
[2016-09-28 05:57] LABS: MANUAL DIFF YES
[2016-09-28 07:44] LABS: ABSOLUTE NEUTROPHILS 16.2 thou/uL (1.4-8.2); ANISOCYTOSIS 1+; PLATELET COUNT 94 thou/uL (150-400); TOTAL CELL COUNT 100
[2016-09-29] VITALS (12 sets, daily range): BP systolic 107–142; BP diastolic 63–87
[2016-09-29 05:28] LABS: MAGNESIUM 2.3 mg/dL (1.8-2.4)
== END 2016-09-30 18:05 | DRG 871 ==
LOC: ER 09:57 → ICU 11:48 → EROBS 11:48 → 4E 15:19 → ICU 09-25 06:46 → 4E 09-30 06:26
PROVIDERS: Emergency Medicine; Hospitalist; Internal Medicine Nephrology; Internal Medicine Pulmonary Disease; Nurse Practitioner Family
PROC: 02HV33Z Insertion of Infusion Device into Superior Vena Cava, Percutaneous Approach (ICD-10-PCS; principal; 2016-09-25)
PROC: B5181ZA Fluoroscopy of Superior Vena Cava using Low Osmolar Contrast, Guidance (ICD-10-PCS; principal; 2016-09-25)
PROC: 5A09357 Assistance with Respiratory Ventilation, Less than 24 Consecutive Hours, Continuous Positive Airway Pressure (ICD-10-PCS; 2016-09-25)
DX: A41.9 Sepsis, unspecified organism (principal); N17.0 Acute kidney failure with tubular necrosis; G93.41 Metabolic encephalopathy; J69.0 Pneumonitis due to inhalation of food and vomit; R65.21 Severe sepsis with septic shock; J96.21 Acute and chronic respiratory failure with hypoxia; S36.119A Unspecified injury of liver, initial encounter; F11.20 Opioid dependence, uncomplicated; E87.1 Hypo-osmolality and hyponatremia; M19.90 Unspecified osteoarthritis, unspecified site; F32.9 Major depressive disorder, single episode, unspecified; F41.9 Anxiety disorder, unspecified; Z96.651 Presence of right artificial knee joint; G89.29 Other chronic pain; M54.9 Dorsalgia, unspecified; F03.90 Unspecified dementia, unspecified severity, without behavioral disturbance, psychotic disturbance, mood disturbance, and anxiety; I69.911 Memory deficit following unspecified cerebrovascular disease; R00.0 Tachycardia, unspecified; E86.0 Dehydration; Z66 Do not resuscitate; E87.6 Hypokalemia; D72.825 Bandemia; E87.8 Other disorders of electrolyte and fluid balance, not elsewhere classified; T14.91 Suicide attempt; Z51.5 Encounter for palliative care; Z90.710 Acquired absence of both cervix and uterus; Z87.891 Personal history of nicotine dependence; Z79.82 Long term (current) use of aspirin; Z79.899 Other long term (current) drug therapy
CPT/HCPCS: 10204; 10783; 27000